=== PATIENT | male | born 1980 | race Hispanic/Latino ===

== ENCOUNTER 2024-05-24 20:07 | Emergency (ER) | payer OTHER ==
--- NOTE | 2024-05-24 20:44 | RAD REPORT ---
EXAMINATION: ONE VIEW CHEST XR CLINICAL INDICATION: Male, 43 years old. Chest pain, shortness of breath. TECHNIQUE: 1 View, AP supine, X-ray of the chest was performed. [id number]. COMPARISON: No prior exam. FINDINGS: Lungs and pleura: Clear lungs. No effusion. Heart and mediastinum: Normal heart size. Unremarkable mediastinal contours. Osseous structures: No acute abnormality. Tubes/lines: None Other: None. IMPRESSION: No acute intrathoracic abnormality.
[2024-05-24 20:54] LABS: Absolute Eosinophils 0.1 K/uL (0-0.5); Absolute Lymphocytes (CBC) 1.6 K/uL (0.7-4.9); Absolute Monocytes 0.6 K/uL (0.1-1.3); Basophils % 0.6 % (0-1.3); Eosinophils % 1.3 % (0-4.4); Hematocrit 43.7 % (39.6-49.0); Hemoglobin 14.9 g/dL (13.6-17.9); Lymphocytes % 18.9 % (15.3-44.8); MCH 30.8 pg (27.0-35.0); MCHC 34.1 g/dL (32.0-36.0); MCV 90.5 fL (80-100); MPV 8.4 fL (7.6-11.3); Monocytes % 7.4 % (3.3-12.3); Neutrophils % 71.8 % (41.7-73.7); Platelets 184 thou/uL (152-406); RBC Red Blood Cell Count 4.83 M/uL (4.33-5.43); Red Cell Distribution Width 13.8 % (12.1-15.2)
[2024-05-24 21:06] LABS: ALT/SGPT 55 U/L (16-61); AST/SGOT 22 U/L (15-37); Albumin 4.1 g/dL (3.4-5.0); Albumin/Globulin Ratio 1.1 (1.1-1.8); Alkaline Phosphatase 64 U/L (45-117); Anion Gap 7.9 mEq/L (5.0-15.0); BUN Blood Urea Nitrogen 15 mg/dL (7-18); Bicarbonate 26 mEq/L (21-32); Bilirubin Direct < 0.2 mg/dL (0-0.2); Bilirubin Indirect, Calculated 0.3 mg/dL (0.2-0.8); Bilirubin Total 0.5 mg/dL (0.2-1.0); Globulin 3.8 g/dL (2.3-3.5); Glomerular Filtration Rate 93 ml/min (=/>90); Glucose Level 85 mg/dL (74-106); Magnesium 2.3 mg/dL (1.6-2.4); NT PRO-BNP 27 pg/mL (<125); Potassium 3.9 mEq/L (3.5-5.1); Protein, Total 7.9 g/dL (6.4-8.2); Sodium Level 139 mEq/L (136-145); Troponin High Sensitivity 9.4 pg/mL (<58.9)
[2024-05-24 21:07] LABS: PT Prothrombin Time 11.5 SECONDS (9.4-12.5); Protime INR 1.03
--- NOTE | 2024-05-24 23:32 | ER ---
Nurse's Notes [facility] Name: Handy Dennison Age: 43 yrs Sex: Male : 1980 Arrival Date: 05/24/2024 Time: 20:07 Bed 7 Private MD: Diagnosis: Chest pain, unspecified Presentation: 05/24 20:13 Chief complaint: Patient states: Pt states chest pain that causes him to gasp for air dd2 occasionally for 2-3 weeks, worse in the past 2-3 days. Pt states stopped taking his BP meds due to "low" readings. Coronavirus screen: At this time, the client does not indicate any symptoms associated with coronavirus-19. Ebola Screen: No symptoms or risks identified at this time. Initial Sepsis Screen: Does the patient meet any 2 criteria? No. Patient's initial sepsis screen is negative. Does the patient have a suspected source of infection? No. Patient's initial sepsis screen is negative. Risk Assessment: Do you want to hurt yourself or someone else? Patient reports no desire to harm self or others. Onset of symptoms is unknown. 20:13 Method Of Arrival: Ambulatory dd2 20:13 Acuity: MARTHA 3 dd2 Triage Assessment: 20:19 General: Appears in no apparent distress. Behavior is calm, cooperative, appropriate dd2 for age. Pain: Complains of pain in anterior aspect of left upper chest and mid-sternal area Pain currently is 6 out of 10 on a pain scale. Cardiovascular: Reports chest pain, lightheadedness, palpitations, shortness of breath, Patient's skin is warm and dry. Historical: - Allergies: 20:19 No Known Allergies; dd2 - PMHx: 20:19 Hypertensive disorder; Sleep apnea; Back problems; dd2 - PSHx: 20:19 hernia repair; dd2 - Immunization history:: Adult Immunizations unknown. - Infectious Disease History:: Denies. - Social history:: Smoking status: Patient reports the use of cigarette tobacco products, denies chronic smoking, but will smoke occasionally. - Family history:: not pertinent. Screenin:42 [facility] ED Fall Risk Assessment (Adult) History of falling in the last 3 months, tm6 including since admission No falls in past 3 months (0 pts) Confusion or Disorientation No (0 pts) Intoxicated or Sedated No (0 pts) Impaired Gait No (0 pts) Mobility Assist Device Used No (0 pt) Altered Elimination No (0 pt) Score/Fall Risk Level 0 - 2 = Low Risk Oriented to surroundings, Maintained a safe environment, Educated pt \\T\\ family on fall prevention, incl call for assistance when getting out of bed. Abuse screen: Denies threats or abuse. Denies injuries from another. Nutritional screening: No deficits noted. Tuberculosis screening: No symptoms or risk factors identified. Assessment: 20:42 General: Appears in no apparent distress. distressed, Behavior is calm, cooperative. tm6 Pain: Complains of pain in chest Pain does not radiate. Pain currently is 3 out of 10 on a pain scale. at worst was 10 out of 10 on a pain scale. Quality of pain is described as pressure, Pain began 1 day ago. Is intermittent. Neuro: Level of Consciousness is awake, alert, obeys commands, Oriented to person, place, time, situation. Cardiovascular: Reports chest pain, shortness of breath, Patient's skin is warm and dry. Rhythm is sinus rhythm. Respiratory: Reports shortness of breath at rest on exertion Airway is patent Respiratory effort is even, unlabored, Respiratory pattern is regular, symmetrical. GI: No signs and/or symptoms were reported involving the gastrointestinal system. Abdomen is flat, non-distended. : No signs and/or symptoms were reported regarding the genitourinary system. EENT: No signs and/or symptoms were reported regarding the EENT system. Derm: No signs and/or symptoms reported regarding the dermatologic system. Musculoskeletal: No signs and/or symptoms reported regarding the musculoskeletal system. 22:39 General: Appears in no apparent distress. Behavior is calm, cooperative. Pain: al5 Complains of pain in chest. Pain: Pain currently is 3 out of 10 on a pain scale. Neuro: Level of Consciousness is awake, alert, obeys commands, Oriented to person, place, time, situation. Cardiovascular: Reports chest pain, Capillary refill < 3 seconds Patient's skin is warm and dry. Rhythm is sinus rhythm. Respiratory: Airway is patent Respiratory effort is even, unlabored, Respiratory pattern is regular, symmetrical. GI: No signs and/or symptoms were reported involving the gastrointestinal system. : No signs and/or symptoms were reported regarding the genitourinary system. EENT: No signs and/or symptoms were reported regarding the EENT system. Derm: Skin is intact, Skin is pink, warm \\T\\ dry. normal. Musculoskeletal: No signs and/or symptoms reported regarding the musculoskeletal system. Vital Signs: 20:13 BP 133 / 105; Pulse 76; Resp 17; Temp 98.2(O); Pulse Ox 100% ; Weight 104.33 kg; dd2 20:45 BP 158 / 105; Pulse 82; Resp 14; Pulse Ox 98% on R/A; tm6 22:00 BP 158 / 105; Pulse 78; Resp 18; Pulse Ox 100% on R/A; al5 22:30 BP 123 / 96; Pulse 79; Resp 18; Pulse Ox 96% on R/A; al5 ED Course: 20:10 Patient arrived in ED. jj6 20:14 Cam Mendes MD is Attending Physician. sp4 20:19 Triage completed. dd2 20:19 Arm band placed on left wrist. Patient placed in an exam room, on a stretcher, on dd2 monitor technician, on pulse oximetry, Patient notified of wait time. 20:28 Linette Martinez, RN is Primary Nurse. tm6 20:34 XRAY Chest (1 view) In Process Unspecified. EDMS 20:41 Basic Metabolic Panel Sent. tm6 20:41 CBC with Diff Sent. tm6 20:41 LFT's Sent. tm6 20:41 Magnesium Sent. tm6 20:41 NT PRO-BNP Sent. tm6 20:41 PT-INR Sent. tm6 20:41 Troponin HS Sent. tm6 20:41 EKG done, by ED staff, reviewed by Cam Mendes MD. Inserted saline lock: 20 gauge tm6 in right antecubital area, using aseptic technique. Blood collected. Flushed with 10 mL NS. 20:42 Patient has correct armband on for positive identification. Bed in low position. Call tm6 light in reach. Side rails up X 1. Provided Education on: use of call weems. Client placed on continuous cardiac and pulse oximetry monitoring. NIBP monitoring applied. lunchroom monitor on. Pulse ox on. NIBP on. Door closed. Noise minimized. Pillow given. 20:42 Patient maintains SpO2 saturation greater than 95% on room air. tm6 22:39 No provider procedures requiring assistance completed. al5 23:28 Noah Mclaughlin MD is Referral Physician. sp4 23:37 IV discontinued, intact, bleeding controlled, No redness/swelling at site. Pressure al5 dressing applied. Administered Medications: No medications were administered Medication: 20:42 VIS not applicable for this client. tm6 Outcome: 23:31 Discharge ordered by . sp4 23:37 Discharged to home ambulatory, with significant other, al5 23:37 Condition: good 23:38 Discharge instructions given to patient, significant other, Instructed on discharge al5 instructions, follow up and referral plans. Demonstrated understanding of instructions, follow-up care, 23:38 Patient left the ED. al5 Signatures: Dispatcher [employer] EDMS Soco [email or web address] Cam Mendes MD MD sp4 Linette Martinez RN RN tm6 Umu Scott RN RN al5 JAN NESBITT RN RN dd2
--- NOTE | 2024-05-24 23:32 | EDPHYS ---
Physician Documentation [facility] Name: Handy Dennison Age: 43 yrs Sex: Male : 1980 Arrival Date: 05/24/2024 Time: 20:07 Bed 7 Private MD: ED Physician Cam Mendes HPI: 05/24 20:14 This 43 yrs old Male presents to ER via Unassigned with complaints of Chest sp4 Pain, Shortness Of Breath. 05/25 18:01 This is a 43-year-old male who presents with intermittent chest pains for several days sp4 up to 2 weeks. . 18:02 Patient states he has difficulty sleeping secondary to sleep apnea also he is not using sp4 his sleep apnea machine because he cannot get accustomed to it.. Patient denies exertional chest pains or exertional dyspnea. . Historical: - Allergies: 05/24 20:19 No Known Allergies; dd2 - PMHx: 20:19 Hypertensive disorder; Sleep apnea; Back problems; dd2 - PSHx: 20:19 hernia repair; dd2 - Immunization history:: Adult Immunizations unknown. - Infectious Disease History:: Denies. - Social history:: Smoking status: Patient reports the use of cigarette tobacco products, denies chronic smoking, but will smoke occasionally. - Family history:: not pertinent. ROS: 05/25 18:02 Constitutional: Negative for fever, chills, and weight loss, sp4 All other systems are negative, Exam: 05/24 23:25 ECG was reviewed by the Attending Physician. EKG at 2031 normal sinus rhythm rate sp4 78 05/25 18:06 Constitutional: This is a well developed, well nourished patient who is awake, alert, sp4 and in no acute distress. Head/Face: Normocephalic, atraumatic. Eyes: Pupils equal round and reactive to light, extra-ocular motions intact. Lids and lashes normal. Conjunctiva and sclera are not injected. Cornea within normal limits. Periorbital areas with no swelling, redness, or edema. ENT: Nares patent. No nasal discharge, no septal abnormalities noted. Tympanic membranes are normal and external auditory canals are clear. Oropharynx with no redness, swelling, or masses, exudates, or evidence of obstruction, uvula midline. Mucous membranes moist. Neck: Trachea midline, no thyromegaly or masses palpated, and no cervical lymphadenopathy. Supple, full range of motion without nuchal rigidity, or vertebral point tenderness. Chest/axilla: Normal chest wall appearance and motion. Nontender with no deformity. No lesions are appreciated. Cardiovascular: Regular rate and rhythm with a normal S1 and S2. No gallops, murmurs, or rubs. Normal PMI, no JVD. No pulse deficits. Respiratory: Lungs have equal breath sounds bilaterally, clear to auscultation and percussion. No rales, rhonchi or wheezes noted. No increased work of breathing, no retractions or nasal flaring. Abdomen/GI: Soft, with normal bowel sounds. No distension or tympany. No guarding or rebound. No evidence of tenderness throughout. Back: No spinal tenderness. No costovertebral tenderness. Skin: Warm, dry with normal turgor. Normal color with no rashes, no lesions, and no evidence of cellulitis. MS/ Extremity: Pulses equal, no cyanosis. Neurovascular intact. Full, normal range of motion. Neuro: Awake and alert, GCS 15, oriented to person, place, time, and situation. Cranial nerves II-XII grossly intact. Motor strength 5/5 in all extremities. Sensory grossly intact. Psych: Awake, alert, with orientation to person, place and time. Behavior, mood, and affect are within normal limits Vital Signs: 05/24 20:13 BP 133 / 105; Pulse 76; Resp 17; Temp 98.2(O); Pulse Ox 100% ; Weight 104.33 kg; dd2 20:45 BP 158 / 105; Pulse 82; Resp 14; Pulse Ox 98% on R/A; tm6 22:00 BP 158 / 105; Pulse 78; Resp 18; Pulse Ox 100% on R/A; al5 22:30 BP 123 / 96; Pulse 79; Resp 18; Pulse Ox 96% on R/A; al5 MDM: 20:15 Patient medically screened. sp4 05/25 18:10 Differential diagnosis: acute myocardial infarction, acute pericarditis, anxiety, chest sp4 wall pain, costochondritis, esophagitis. HEART Score: History: Slightly Suspicious (0), ECG: Normal (0), Age: > 45 and < 65 years (1), Risk Factors: 1 or 2 risk factors (1), Troponin: < or = 1 x Normal Limit (0), Total Score = 2. Data reviewed: vital signs, nurses notes, old medical records, lab test result(s), EKG, radiologic studies, plain films. ED course: Patient stable for discharge home workup negative today. 05/24 20:14 Order name: Basic Metabolic Panel; Complete Time: 22:12 4 05/24 20:14 Order name: CBC with Diff; Complete Time: 22:12 4 05/24 20:14 Order name: LFT's; Complete Time: 22:12 sp4 05/24 20:14 Order name: Magnesium; Complete Time: 22:12 sp4 05/24 20:14 Order name: NT PRO-BNP; Complete Time: 22:12 4 05/24 20:14 Order name: PT-INR; Complete Time: 22:12 4 05/24 20:14 Order name: Troponin HS; Complete Time: 22:12 4 05/24 22:12 Order name: Troponin High Sensitivity; Complete Time: 23:17 4 05/24 20:14 Order name: XRAY Chest (1 view); Complete Time: 22:12 4 05/24 20:14 Order name: Cardiac monitoring; Complete Time: 20:41 [facility] 05/24 20:14 Order name: EKG - Nurse/Tech; Complete Time: 20:41 4 05/24 20:14 Order name: IV Saline Lock; Complete Time: 20:41 sp4 05/24 20:14 Order name: Labs collected and sent; Complete Time: 20:41 [facility] 05/24 20:14 Order name: O2 Per Protocol; Complete Time: 20:41 4 05/24 20:14 Order name: O2 Sat Monitoring; Complete Time: 20:41 sp4 EC/13 23:25 Rate is 78 beats/min. Rhythm is regular, Normal Sinus Rhythm. QRS [place] is Normal. [place] sp4 interval is normal. QRS interval is normal. QT interval is normal. No Q waves. T waves are Normal. No ST changes noted. Clinical impression: Normal ECG. Interpreted by me. Reviewed by me. Administered Medications: No medications were administered Disposition Summary: 05/24/24 23:31 Discharge Ordered Problem: new sp4 Symptoms: have improved sp4 Condition: Stable sp4 Diagnosis - Chest pain, unspecified sp4 Followup: sp4 - With: Noah Mclaughlin MD - When: 7 - 10 days - Reason: Recheck today's complaints Discharge Instructions: - Discharge Summary Sheet sp4 - Nonspecific Chest Pain, Adult, [id number] sp4 Forms: - Patient Portal Instructions sp4 Signatures: Dispatcher [employer] Cam Tyson MD MD sp4 JAN NESBITT RN RN dd2 Corrections: (The following items were deleted from the chart) 20:15 20:15 Chest Single View+[email or web address] ordered. EDMS EDMS
[2024-05-25 00:16] VITALS: TEMP 98.2
[2024-05-25 00:20] VITALS: BP 123/96; O2SAT 96
--- NOTE | 2024-05-27 12:55 | EKG ---
Test Date: 2024-05-24 Test Time: 20:32:28 Producer Director: SIENA MEASUREMENT RESULTS: Intervals: Rate: 78 HI: 190 QRSD: 104 QT: 380 QTc: 433 [place]: P: 47 HI: 190 QRS: 0 T: 24 INTERPRETIVE STATEMENTS: Normal sinus rhythm Normal ECG No previous ECG available for comparison Electronically Signed On 05-27-24 12:49:02 CDT by Noah Mclaughlin
== END 2024-05-24 23:38 | disposition home or self-care (01) ==
LOC: ER 20:07
DX: R07.9 Chest pain, unspecified (principal); R06.02 Shortness of breath; I10 Essential (primary) hypertension; F17.210 Nicotine dependence, cigarettes, uncomplicated
CPT/HCPCS: 36415; 71045; 80048; 80076; 83735; 83880; 84484; 85025; 85610; 93005; 99284